=== PATIENT | male | born 1955 | race Caucasian/White ===

== ENCOUNTER → 2020-07-31 | Outpatient (CLI) | payer OTHER ==
[~2020-07-31] MED LIST: ADULT LOW DOSE81 MG PO; ALFALFA650 MG PO; BIOTIN2500 MCG PO; BRILINTA90 MG PO; C-10001000 M1 PO; DAILY GARLIC O400 MG PO; FENOFIBRATE134 MG PO; FENOGLIDE40 MG PO; FISH OIL 1,2001 EAC4 PO; FLAX SEED OIL1000 MG PO; GLIPIZIDE ER10 MG PO; GLIPIZIDE ER2.5 MG PO; GLUCOPHAGE XR500 MG PO; JANUMET 50-5001 EACH PO; LEVEMIR SUBQ; LIPITOR 20 MG T20 M1 PO; METFORMIN HCL500 M2 PO; MULTI VITAMIN1 EACH PO; NITROGLYCERIN0.4 MG SUBLING; VITAMIN D5000 UNIT PO; VITAMIN E400 UNIT PO
== END ==
LOC: SJCVC 09:10 → SJCVCIMAG 15:46 → SJCVC 15:46
PROVIDERS: ATTEND Internal Medicine
DX: I35.8 Other nonrheumatic aortic valve disorders (principal); I51.7 Cardiomegaly; I25.10 Atherosclerotic heart disease of native coronary artery without angina pectoris; Z98.61 Coronary angioplasty status